=== PATIENT | female | born 1970 | race African-American/Black ===

== ENCOUNTER 2017-01-12 09:00 | Emergency (ER) | payer OTHER ==
[2017-01-12 09:09] VITALS: BP 115/80
== END 2017-01-12 09:16 | disposition left against medical advice (07) ==
LOC: ER 09:00
DX: Z53.21 Procedure and treatment not carried out due to patient leaving prior to being seen by health care provider (principal)
CPT/HCPCS: 99281

== ENCOUNTER 2017-02-25 11:02 | Emergency (ER) | payer OTHER ==
--- NOTE | 2017-02-25 12:27 | ER Document Report ---
ED Extremity Problem, Lower - General Chief Complaint: Leg Pain Stated Complaint: LEG FOOT PAIN Time Seen by Provider: 02/25/17 11:39 Mode of Arrival: Ambulatory Information source: Patient Notes: 46-year-old female presents to ED for complaint of right foot pain. She had surgery on her right leg on February 12 could not make up the follow-up appointment due to the weather. States pain was radiating down to the foot for the last 3 days. Patient is on Lyrica ibuprofen oxycodone and Elavil from her primary doctor. She had a hysterectomy in January 08, 2017 causing there to be no flow to the right leg so she had stents put in her right leg on February 07. She states she then developed a compartment syndrome of the leg and had a fasciotomy done on February 12, 2017. She states for the last 3 days she has had severe burning to the foot. She has good pedal pulses good cap refills to the foot. TRAVEL OUTSIDE OF THE [place] IN LAST 30 DAYS: No - HPI Patient complains to provider of: Pain. No: Swelling Location: Foot Occurred: Other - 3 days Where: Home Onset/Duration: Gradual, Intermittent Quality of pain: Burning Severity: Moderate Pain Level: 3 Context: Other - Pain started after having stents put the leg reestablish arterial flow and then a fasciotomy to the leg. Recent injury: No Associated symptoms: Painful ambulation Exacerbated by: Movement, Walking Relieved by: Nothing - Related Data Allergies/Adverse Reactions: No Known Allergies Allergy (Unverified 02/25/17 11:05) Past Medical History - General Information source: Patient - Social History Smoking Status: Never Smoker Cigarette use (# per day): No Chew tobacco use (# tins/day): No Smoking Education Provided: No Frequency of alcohol use: None Drug Abuse: None Lives with: Family Family History: Malignancy, Thyroid Disfunction. denies: Arthritis, CAD, COPD, CVA, DM, Hyperlipidemia, Hypertension Patient has suicidal ideation: No Patient has homicidal ideation: No - Past Medical History Cardiac Medical History: Reports: Hx Hypertension, Other - Decreased arterial flow to the right leg followed by stents to reestablish Pulmonary Medical History: Reports: None EENT Medical History: Reports: None Neurological Medical History: Reports: Hx Migraine Endocrine Medical History: Reports: None Renal/ Medical History: Reports: None Malignancy Medical History: Reports: None GI Medical History: Reports: None Musculoskeltal Medical History: Reports Hx Musculoskeletal Deformity, Reports Hx Musculoskeletal Trauma Skin Medical History: Reports None Psychiatric Medical History: Reports: Hx Anxiety, Hx Depression Traumatic Medical History: Reports: None Infectious Medical History: Reports: None Past Surgical History: Reports: Hx Abdominal Surgery, Hx Section, Hx Gynecologic Surgery, Hx Hysterectomy, Hx Vascular Surgery - stent left leg - Immunizations Immunizations up to date: Yes Review of Systems - Review of Systems Constitutional: No symptoms reported EENT: No symptoms reported Cardiovascular: No symptoms reported Respiratory: No symptoms reported Gastrointestinal: No symptoms reported Genitourinary: No symptoms reported Female Genitourinary: No symptoms reported Musculoskeletal: No symptoms reported Skin: No symptoms reported Hematologic/Lymphatic: No symptoms reported Neurological/Psychological: No symptoms reported Physical Exam - Vital signs Vitals: Temp Pulse Resp BP Pulse Ox 98.3 F 87 18 130/77 H 100 02/25/17 11:11 02/25/17 11:11 02/25/17 11:11 02/25/17 11:11 02/25/17 11:11 Interpretation: Normal - General General appearance: Appears well, Alert - HEENT Head: Normocephalic, Atraumatic Eyes: Normal Pupils: PERRL - Respiratory Respiratory status: No respiratory distress Chest status: Nontender Breath sounds: Normal Chest palpation: Normal - Cardiovascular Rhythm: Regular Heart sounds: Normal auscultation Murmur: No - Abdominal Inspection: Normal Distension: No distension Bowel sounds: Normal Tenderness: Nontender Organomegaly: No organomegaly - Back Back: Normal, Nontender - Extremities General upper extremity: Normal inspection, Nontender, Normal color, Normal ROM , Normal temperature General lower extremity: Normal color, Normal temperature Calf: Other - Pulses intact to the right calf Ankle: Normal, Nontender Foot: Tender, No evidence of FB, Unable to bear weight, Other - Burning to the right foot with no redness no swelling this is a neuralgia due to the fasciotomy and the stent placement in the right leg. No: Abrasion, Deformity, Ecchymosis, Edema, Instability, Laceration, Metatarsal compress. 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 Trevizo 81 [address] He came and examined the patient also. Will double up her middle dose of Lyrica other medications are to stay the same. Patient is to call her surgeon on Tuesday and follow-up as soon as possible as she was not able to keep her appointment that was scheduled yesterday for postop. - Vital Signs Vital signs: Temp Pulse Resp BP Pulse Ox 98.3 F 88 20 112/67 97 02/25/17 11:11 02/25/17 12:39 02/25/17 12:39 02/25/17 12:39 02/25/17 12:39 Discharge - Discharge Clinical Impression: Neuropathy of right foot Condition: Stable Disposition: HOME, SELF-CARE Additional Instructions: Neuralgia Neuralgia is nerve pain. Usually, the pains are sudden and sharp. They' re brief, but come repeatedly. The pains can occur spontaneously, or can be triggered by motion or touching. Sometimes the pain is constant. Neuralgia can occur with injury, infection, poor blood flow to the nerves, or chemical changes (such as hyperventilation). It's common in diseases that affect blood vessels, such as diabetes or high blood pressure. Anything that irritates or disturbs the nerves can cause neuralgia. The usual treatment is antiinflammatory medicine (such as ibuprofen, or prednisone for severe cases). Avoid rubbing or irritating the areas near the pain. Both adequate rest and regular aerobic exercise help reduce the frequency of the pains. A good mental attitude helps, too -- antidepressant medicine is often helpful for resistant cases of neuralgia. Call the doctor if there are new symptoms, such as numbness, loss of strength, discoloration of the skin, or continuous pain. Please double your Lyrica for your middle of the day dose so take 50 mg in the morning 100 mg in the afternoon and 50 mg at night. Please [facility] as soon as they are available and discussed your pain. Please get an appointment for as soon as possible. Take your other medications as prescribed. Elevate your leg and try not to rub the leg or agitate the leg which can increase the pain. FOLLOW-UP CARE: If you have been referred to a physician for follow-up care, call the physician s office for an appointment as you were instructed or within the next two days. If you experience worsening or a significant change in your symptoms, notify the physician immediately or return to the Emergency Department at any time for re-evaluation. Forms: Elevated Blood Pressure
[2017-02-25 12:44] VITALS: BP 112/67
== END 2017-02-25 12:47 | disposition home or self-care (01) ==
LOC: ER 11:02
DX: G62.9 Polyneuropathy, unspecified (principal); M79.671 Pain in right foot; Z79.899 Other long term (current) drug therapy
CPT/HCPCS: 99283